=== PATIENT | female | born 1995 | race Hispanic/Latino ===

== ENCOUNTER 2017-09-11 10:37 | Inpatient (IN) | payer MEDICAID ==
[~2017-09-11 10:37] MED LIST: PREN1TAB26 PO
[2017-09-11] MEDS ORDERED: LACTATED RINGERS 1000ML 1,000 ML IV PRN (10:54)
[2017-09-11] MEDS ORDERED: OXYTOCIN-LR 20 UNITS/1000 ML 1,000 ML IV SCH (11:00)
[2017-09-11 11:17] LABS: APPEARANCE,URINE Clear (CLEAR); BILIRUBIN,URINE Negative (NEGATIVE); COLOR,URINE Yellow (YELLOW); GLUCOSE, URINE (UA) Negative (NEGATIVE); KETONES,URINE Negative (NEGATIVE); LEUKOCYTE ESTERASE ,URINE Trace (NEGATIVE); NITRATE,URINE Negative (NEGATIVE); OCCULT BLOOD,URINE Negative (NEGATIVE); PH,URINE 6.5 (5.0-8.0); PROTEIN,URINE Negative (NEGATIVE)
[2017-09-11 11:18] LABS: HEMATOCRIT 32.2 % (36-48); MEAN CORPUSCULAR HEMOGLOBIN 29.8 pg (27.0-33.0); MEAN CORPUSCULAR HGB CONC 35.3 g/dL (32.0-36.0); MEAN CORPUSCULAR VOLUME 84.3 fL (80-100); PLATELET COUNT (AUTO) 241 K/uL (130-400); RED BLOOD CELL COUNT(AUTO) 3.82 MIL/uL (4.00-5.50); RED CELL DISTRIBUTION WIDTH 14.9 % (11.0-15.5); WHITE BLOOD COUNT (AUTO) 9.7 K/uL (4.8-10.8)
[2017-09-11 11:24] LABS: BACTERIA,URINE Few /HPF (None Seen); SQUAMOUS EPITHELIAL CELL,UR Few /HPF (0-2); WBC,URINE 0-1 /HPF (0-1)
[2017-09-11] MEDS ORDERED: OXYTOCIN 10 USP UNITS/ML ONE ×2 (11:46→17:28)
[2017-09-11] MEDS ORDERED: DIPH,PERTUSS(ACELL),TET VAC/PF 0.5 ML VIAL IM PRN (16:30)
[2017-09-11] MEDS ORDERED: ACETAMINOPHEN 325 MG TAB PO PRN (16:30)
[2017-09-11] MEDS ORDERED: WITCH HAZEL 1 PAD TP PRN (16:30)
[2017-09-11] MEDS ORDERED: LANOLIN 30GM OINTMENT TP PRN (16:30)
[2017-09-11] MEDS ORDERED: BENZOCAINE/LANOLIN/ALOE VERA 60 ML AEROSOL TP PRN (16:30)
[2017-09-11] MEDS ORDERED: MEASLES/MUMPS/RUBELLA VACCINE, LIVE 0.5 ML/VIAL SQ PRN (16:30)
[2017-09-11 17:44] VITALS: BP 130/81
[2017-09-11] MEDS: DOCUSATE SODIUM 100 MG CAP PO SCH (20:41)
[2017-09-11 21:13] VITALS: BP 126/80
[2017-09-11] MEDS: IBUPROFEN 600 MG TABLET PO PRN (23:58)
[2017-09-12 00:45] VITALS: BP 119/51
[2017-09-12 04:53] VITALS: BP 109/60
[2017-09-12 05:44] LABS: HEMATOCRIT 29.6 % (36-48); MEAN CORPUSCULAR HEMOGLOBIN 28.1 pg (27.0-33.0); MEAN CORPUSCULAR HGB CONC 33.2 g/dL (32.0-36.0); MEAN CORPUSCULAR VOLUME 84.7 fL (80-100); PLATELET COUNT (AUTO) 215 K/uL (130-400); RED CELL DISTRIBUTION WIDTH 14.9 % (11.0-15.5); WHITE BLOOD COUNT (AUTO) 12.1 K/uL (4.8-10.8)
[2017-09-12 07:40] VITALS: BP 110/67
[2017-09-12 08:21] LABS: HEPATITIS Bs ANTIGEN SCREEN P Negative (Negative)
[2017-09-12] MEDS: DOCUSATE SODIUM 100 MG CAP PO SCH (09:06)
[2017-09-12] MEDS: IBUPROFEN 600 MG TABLET PO PRN (09:06)
[2017-09-12 11:56] VITALS: BP 109/65
[2017-09-12 15:33] VITALS: BP 119/73
== END 2017-09-12 17:20 | disposition home or self-care (01) | DRG 560 ==
LOC: LDH 10:37 → WSH 17:40
PROVIDERS: ADMIT Obstetrics & Gynecology; ATTEND Obstetrics & Gynecology
PROC: 10E0XZZ Delivery of Products of Conception, External Approach (ICD-10-PCS; principal; 2017-09-11)
PROC: 10907ZC Drainage of Amniotic Fluid, Therapeutic from Products of Conception, Via Natural or Artificial Opening (ICD-10-PCS; 2017-09-11)
PROC: 3E0234Z Introduction of Serum, Toxoid and Vaccine into Muscle, Percutaneous Approach (ICD-10-PCS; 2017-09-11)
PROC: 3E0134Z Introduction of Serum, Toxoid and Vaccine into Subcutaneous Tissue, Percutaneous Approach (ICD-10-PCS; 2017-09-11)
DX: O69.81X0 Labor and delivery complicated by cord around neck, without compression, not applicable or unspecified (principal); Z23 Encounter for immunization; Z37.0 Single live birth; Z3A.40 40 weeks gestation of pregnancy
CPT/HCPCS: 36415; 81001; 85027; 86592; 86850; 86900; 86901; 87340; 90715; A4351; J2590; J7120